=== PATIENT | male | born 1990 | race Caucasian/White ===

== ENCOUNTER 2022-07-10 09:44 | Emergency (ER) | payer OTHER ==
[~2022-07-10] VITALS: Ht 175.3 cm; Wt 106.3 kg
[2022-07-10] MEDS ORDERED: IBUP80TA PO (11:19)
[2022-07-10 11:25] VITALS: BP 128/81
== END 2022-07-10 11:41 | disposition home or self-care (01) ==
LOC: M ED 09:44
DX: M72.2 Plantar fascial fibromatosis (principal)